=== PATIENT | male | born 1970 | race Caucasian/White ===

== ENCOUNTER → 2016-09-28 | Outpatient (CLI) | payer OTHER | LOC: BMCIMAGING 14:03 | PROVIDERS: ATTEND Orthopaedic Surgery | DX: M25.552 Pain in left hip (principal); Z96.642 Presence of left artificial hip joint; M16.11 Unilateral primary osteoarthritis, right hip ==

== ENCOUNTER → 2016-10-10 | Outpatient (CLI) | payer OTHER | LOC: FIMAGING 09:18 | PROVIDERS: ATTEND Orthopaedic Surgery | DX: Z09 Encounter for follow-up examination after completed treatment for conditions other than malignant neoplasm (principal); Z96.642 Presence of left artificial hip joint | CPT/HCPCS: 78315; A9503 ==

== ENCOUNTER → 2016-10-20 | Outpatient (CLI) | payer OTHER | LOC: BMCIMAGING 08:29 | PROVIDERS: ATTEND Orthopaedic Surgery | DX: M25.552 Pain in left hip (principal) ==

== ENCOUNTER → 2016-10-27 | Outpatient (CLI) | payer OTHER | LOC: FIMAGING 07:12 | PROVIDERS: ATTEND Orthopaedic Surgery | DX: M16.11 Unilateral primary osteoarthritis, right hip (principal) ==

== ENCOUNTER 2016-11-14 09:26 | Inpatient (IN) | payer OTHER ==
[~2016-11-14 09:26] MED LIST: ACETAMINOPHEN 325 MG TAB PO ONE; BISACODYL 10 MG SUPP PR PRN; CEFAZOLIN 2 GM/DEXTR 100 ML IV ONE; CHLORHEXIDINE GLUC HIBICLENS 118 ML BTL TP ONE; CYCLOBENZAPRINE 10 MG TAB PO PRN; DIAZEPAM 5 MG TAB PO PRN; DIPHENOXYLATE/ATROPINE LOMOTIL 1 TAB PO PRN; FAMOTIDINE 20 MG TAB PO ONE; LACTULOSE 20 GM/30 ML UDCUP PO PRN; LR 1,000 ML IV SCH; MAGNESIUM HYDROXIDE 30 ML UDCUP PO PRN; METOCLOPRAMIDE 10 MG/2 ML VIAL IVP PRN; ONDANSETRON 4 MG/2 ML VIAL IVP PRN; ONDANSETRON DISINTEGRATING 4 MG TAB PO PRN; PHARMACY PAIN CONSULT 1 EA MISC PRN; POLYETHYLENE GLYCOL 3350 17 GM PKT PO PRN; PROMETHAZINE HCL 25 MG SUPPR PR PRN; ROPI/epiNEPH/KETOROLAC/morphINE JOINT COCKTAIL IU ONE; TEMAZEPAM 15 MG CAP PO PRN; diphenhydrAMINE 25 MG CAP PO PRN; oxyCODONE IR 5 MG TAB PO PRN; traMADol 50 MG TAB PO PRN
[2016-11-14] MEDS ORDERED: fentaNYL 100 MCG/2 ML INJ ONE ×2 (12:32→17:52)
[2016-11-14] MEDS ORDERED: PROPOFOL/EMULSION 500 MG/50 ML BOTTLE IV ONE ×2 (12:32→15:51)
[2016-11-14] MEDS ORDERED: LIDOCAINE 2% 5 ML SDV ONE (12:34)
[2016-11-14] MEDS ORDERED: DEXAMETHASONE 4 MG/ML VIAL ONE (12:34)
[2016-11-14] MEDS ORDERED: FAMOTIDINE 20 MG TAB ONE (12:48)
[2016-11-14] MEDS ORDERED: CITRATE DEXTROSE SOLN 500 ML BAG ONE ×2 (13:10→16:39)
[2016-11-14] MEDS ORDERED: ceFAZolin 1 GM/5 ML SYR ONE ×3 (13:11→16:28)
[2016-11-14] MEDS ORDERED: LR 1,000 ML IV ONE (13:15)
[2016-11-14] MEDS ORDERED: ROCURONIUM 100 MG/10 ML VIAL ONE (13:51)
[2016-11-14] MEDS ORDERED: morphINE *ANESTHESIA ONLY* 10 MG/ML VIAL ONE (13:52)
[2016-11-14] MEDS ORDERED: MIDAZOLAM 2 MG/2 ML VIAL ONE ×2 (13:53→17:18)
[2016-11-14] MEDS ORDERED: KETOROLAC 30 MG/1 ML SDV ONE (15:30)
[2016-11-14] MEDS ORDERED: ONDANSETRON 4 MG/2 ML VIAL ONE (15:30)
[2016-11-14] MEDS ORDERED: ROCURONIUM 50 MG/5 ML VIAL ONE (16:10)
[2016-11-14] MEDS ORDERED: ceFAZolin 1 GM VIAL ONE (16:26)
[2016-11-14] MEDS ORDERED: SUGAMMADEX SODIUM 200 MG/2 ML VIAL IVP ONE ×2 (17:04)
[2016-11-14] MEDS: ACETAMINOPHEN 325 MG TAB PO SCH ×2 (19:31→23:48)
[2016-11-14] MEDS: ceFAZolin 2 GM/DEXTROSE 100 ML IV SCH ×2 (19:31→21:37)
[2016-11-14] MEDS: SENNOSIDES/DOCUSATE SODIUM TAB PO SCH ×2 (19:31→21:37)
[2016-11-14] MEDS: ASPIRIN 325 MG TAB PO SCH (21:37)
[2016-11-14] MEDS: FAMOTIDINE 20 MG TAB PO SCH (21:37)
[2016-11-15 00:40] VITALS: O2SAT 97
[2016-11-15] MEDS: ACETAMINOPHEN 325 MG TAB PO SCH ×2 (05:23→11:42)
[2016-11-15 06:11] LABS: HEMOGLOBIN 8.2 g/dL (13.7-17.5)
--- NOTE | 2016-11-15 08:43 | GDS ---
[f rep st] DISCHARGE SUMMARY ADMITTING DIAGNOSIS: Right hip degenerative joint disease. DISCHARGE DIAGNOSIS: Right hip degenerative joint disease. PROCEDURE: Right total hip arthroplasty. INDICATIONS: The patient is a 45-year-old gentleman who has had a previous left total hip replaceme nt. He has end-stage arthritis to his right hip. Clinical and radiographic features are consistent with this. He has failed all attempts at conservative management. I have, therefore, recommended total hip replacement. He understood the risks, benefits, alternatives, and wished to proceed. Kelly linda consent was signed and placed in patient's chart. HOSPITAL COURSE: The patient was admitted to the hospital after uncomplicated total hip arthroplast y. He did wake up aggressively on operating room table and did dislocate his hip. He did require r eturn to the operating room for revision of the femoral head for stabilization. This was performed concomitant with the initial procedure. Subsequent to this, he has had an uneventful course. Seria l hematocrits remain stable. He has been cleared by physical therapy. He has minimal pain, underst ands his hip precautions. DISCHARGE ACTIVITY: He is weightbearing as tolerated. Anterior hip precautions. Daily dressing ch anges. May shower without the bandage. No soaking or immersion. Follow up in 2 weeks. DISCHARGE MEDICATIONS: Oxycodone 5-10 mg 1-2 every 4 hours p.r.n. pain. Aspirin 325 mg p.o. daily. Valium 5-10 mg p.o. q.6 hours p.r.n. spasm. /[id number]/MODL
[2016-11-15 08:44] VITALS: BP 113/56; PULSE 78; RESP 15; TEMP 97.8
[2016-11-15] MEDS: FAMOTIDINE 20 MG TAB PO SCH (09:35)
[2016-11-15] MEDS: ASPIRIN 325 MG TAB PO SCH (09:35)
[2016-11-15] MEDS: SENNOSIDES/DOCUSATE SODIUM TAB PO SCH (09:35)
== END 2016-11-15 11:59 | disposition home or self-care (01) | DRG 470 ==
LOC: F3N 09:26
PROVIDERS: ADMIT Orthopaedic Surgery; ATTEND Orthopaedic Surgery
PROC: 8E0Y0CZ Robotic Assisted Procedure of Lower Extremity, Open Approach (ICD-10-PCS; principal; 2016-11-14 14:30)
PROC: 0SR904A Replacement of Right Hip Joint with Ceramic on Polyethylene Synthetic Substitute, Uncemented, Open Approach (ICD-10-PCS; principal; 2016-11-14 14:30)
PROC: 0SS9XZZ Reposition Right Hip Joint, External Approach (ICD-10-PCS; 2016-11-14 14:30)
DX: M16.11 Unilateral primary osteoarthritis, right hip (principal); Z96.642 Presence of left artificial hip joint; T84.090A Other mechanical complication of internal right hip prosthesis, initial encounter; E78.00 Pure hypercholesterolemia, unspecified
CPT/HCPCS: 97116-GP; 97161-GP; 97165-GO; J0171; J0690; J1100; J1885; J2250; J2405; J2704; J2795; J3010; J7060

== ENCOUNTER → 2017-02-15 | Outpatient (CLI) | payer OTHER | LOC: BMCIMAGING 10:17 | PROVIDERS: ATTEND Orthopaedic Surgery | DX: Z96.643 Presence of artificial hip joint, bilateral (principal); M53.3 Sacrococcygeal disorders, not elsewhere classified ==

== ENCOUNTER → 2017-11-01 | Outpatient (CLI) | payer BC | LOC: BMCIMAGING 08:20 | PROVIDERS: ATTEND Orthopaedic Surgery | DX: Z47.1 Aftercare following joint replacement surgery (principal); Z96.643 Presence of artificial hip joint, bilateral ==

== ENCOUNTER → 2017-11-09 | Outpatient (CLI) | payer BC | LOC: FIMAGING 09:45 | PROVIDERS: ATTEND Orthopaedic Surgery | DX: Z96.643 Presence of artificial hip joint, bilateral (principal); M51.36 Other intervertebral disc degeneration, lumbar region; M51.27 Other intervertebral disc displacement, lumbosacral region | CPT/HCPCS: 72148; 78315; A9503 ==